=== PATIENT | female | born 1985 | race Caucasian/White ===

== ENCOUNTER 2018-04-28 09:23 | Outpatient (CLI) | payer OTHER | END 2018-04-28 09:28 | disposition home or self-care (01) | LOC: SONOGRAMA 09:23 | DX: E04.1 Nontoxic single thyroid nodule (principal) ==

== ENCOUNTER 2018-06-26 09:35 | Outpatient (CLI) | payer OTHER | END 2018-06-26 09:38 | disposition home or self-care (01) | LOC: SONOGRAMA 09:35 | DX: E04.1 Nontoxic single thyroid nodule (principal) ==